=== PATIENT | female | born 1975 | race Caucasian/White ===

== ENCOUNTER 2016-10-25 22:14 | Emergency (ER) | payer MEDICAID ==
[~2016-10-25] VITALS: Ht 162.6 cm; Wt 72.7 kg
[~2016-10-25 22:14] MED LIST: ALBU8.5H3 INH; FIORICET PO; GUAI118L94 PO; IBUP800T25 PO; PRED50TA PO
[2016-10-25 22:16] VITALS: Ht 162.6 cm; Wt 72.7 kg
--- NOTE | 2016-10-25 23:49 | ERD ---
ER Documentation Chief Complaint Date/Time DATE: 10/25/16 TIME: 23:46 Chief Complaint sp fall from 3 feet ladder, back pain HPI 41 yo female comes to the ER s/p fall from falling off a ladder 3 feet at work tonight. She states that she has diffuse pain from her neck, mid back, low back pain. She state she landed on her buttocks just prior to arrival. Pain is diffuse, moderate to severe, worse with standing, better with sitting, radiating from the buttocks to the mid back. She denies saddle anesthesia, loss of bowel bladder function. ROS All systems reviewed and are negative except as per history of present illness. Medications Home Meds Active Scripts Hydrocodone/Acetaminophen ([place] 5-325 Tablet) 1 Each Tablet, 1 TAB PO Q6H Y for PAIN, #7 TAB Prov:DIANA GARCIA PA-C 10/25/16 Ibuprofen* (Motrin*) 600 Mg Tab, 600 MG PO Q6, #30 TAB Prov:DINAA GARCIA PA-C 10/25/16 Acetamin/Butalbital/Caffeine* (Fioricet*) [id number] Tab, 1 TAB PO Q6H Y for PAIN, #30 TAB Prov:SANYA SINGER PA-C 03/10/16 Ibuprofen* (Motrin*) 800 Mg Tab, 800 MG PO Q6H Y for PAIN AND OR ELEVATED TEMP, #30 TAB Prov:YVETTE SIDDIQUI DO 02/20/16 Guaifenesin-Codeine Phosphate* (Guaifenesin* with Codeine Liq) 120 Ml Liquid, 5 ML PO Q4H for COUGH, #60 ML Prov:JERMAIN INGRAM NP 08/29/15 Prednisone* (Prednisone*) 50 Mg Tablet, 50 MG PO DAILY for 5 Days, TAB Prov:JERMAIN INGRAM NP 08/29/15 Albuterol Sulfate* (Proair HFA*) 8.5 Gm Hfa.aer.ad, 2 PUFF INH Q4H Y for WHEEZING AND SOB, #1 INHALER Prov:JERMAIN INGRAM NP 08/29/15 Reported Medications [none] Unknown Strength No Conflict Check 08/29/15 Allergies Allergies: Coded Allergies: No Known Drug Allergies (Verified Allergy, Mild, 10/18/12) PMhx/Soc History of Surgery: No Anesthesia Reaction: No Hx Neurological Disorder: No Hx Respiratory Disorders: No Hx Cardiac Disorders: No Hx Psychiatric Problems: No Hx Miscellaneous Medical Probl: No Hx Alcohol Use: No Hx Substance Use: No Hx Tobacco Use: No Physical Exam Vitals Vital Signs Date Time Temp Pulse Resp B/P Pulse Ox O2 Delivery O2 Flow Rate FiO2 10/25/16 22:16 97.7 90 20 130/74 98 Physical Exam General: Well-developed, well-nourished. The patient appears in no acute distress. HEENT: Head is normocephalic, atraumatic. No scleral icterus. Neck: Supple. Nontender. Lungs: Clear to auscultation. Normal air movement. Heart: Regular rate and rhythm. S1 and S2 are normal. No murmurs, gallops, or rubs. Abdomen: Soft, nontender, nondistended. Bowel sounds are normoactive. Back: paraspinal tenderness to the low back, no crepitus. Normal gait. strength to LE 5/5 bilaterally. Extremities: No clubbing or cyanosis. Normal pulses. Moving extremities x 4. No weakness. Neurologic: Alert and oriented 3. No focal deficits. Skin: Normal turgor. No rash or lesions. Procedures/MDM ED COURSE: urine : negative Toradol 30mg IM given. MDM: 41 yo female comes to the ER s/p fall with back pain, I doubt underlying fracture due to the low impact, and patient's age. X-rays were obtained of the column as well as the pelvis, currently pending and we signed out to RONNIE Ortiz and attending physician. Departure Diagnosis: Primary Impression: Injury of back Additional Impression: Fall from ladder Condition: Good DIANA GARCIA PA-C Oct 25, 2016 23:49
[2016-10-25] MEDS ORDERED: HYDR-906 PO (23:52)
[2016-10-25] MEDS ORDERED: IBUP-1542 PO (23:52)
[2016-10-25] MEDS ORDERED: KETOROLAC 30 MG INJ IM STA (23:58)
[2016-10-26] MEDS ORDERED: HYDROCODONE/APAP (5/325) TAB PO ONE
--- NOTE | 2016-10-26 00:49 | RADRPT ---
PROCEDURE: PELVIS CLINICAL INDICATION: 41-year-old female with pelvic pain following trauma. TECHNIQUE: An AP supine view of the pelvis was obtained. The images reviewed on a PACS workstati on.. COMPARISON: None. FINDINGS: There are no fractures or dislocations. There are no arthritic, neoplastic or inflammatory changes. The osseous mineralization is normal. The sacroiliac joints are intact. IMPRESSION: Unremarkable pelvic radiograph. .James Mclean MD, MD Date Time Electronically viewed and signed by .James Mclean MD, on 10/26/2016 00:49 .M/
--- NOTE | 2016-10-26 00:50 | RADRPT ---
PROCEDURE: LUMBAR SPINE - 3 VIEWS CLINICAL INDICATION: 41-year-old female with back pain following trauma. TECHNIQUE: AP, lateral and cone-down lateral view of the lumbar spine were obtained. The images we re reviewed on a PACS workstation. COMPARISON: None. FINDINGS: The lumbar vertebral bodies and disk spaces have normal heights and anatomic alignment. No evidence of fracture or subluxation is seen. No significant spondylolisthesis is seen. The partially visualiz ed sacrum is unremarkable. The sacroiliac joints are intact. IMPRESSION: Unremarkable lumbar spine radiographs. .James Mclean MD, MD Date Time Electronically viewed and signed by .James Mclean MD, on 10/26/2016 00:50 .M/
--- NOTE | 2016-10-26 00:51 | RADRPT ---
PROCEDURE: THORACIC SPINE - 2 VIEWS CLINICAL INDICATION: 41-year-old female with back pain following trauma. TECHNIQUE: AP and lateral views of the thoracic spine were obtained. The images were reviewed on a PACS workstation. COMPARISON: None. FINDINGS: The thoracic vertebral bodies and disk spaces have normal heights and anatomic alignment. There is no evidence for an acute fracture or subluxation. The bone marrow mineralization is within normal l imits. IMPRESSION: Unremarkable thoracic spine radiographs. .James Mclean MD, Date Time Electronically viewed and signed by .James Mclean MD, on 10/26/2016 00:50 .M/
--- NOTE | 2016-10-26 00:52 | RADRPT ---
PROCEDURE: CERVICAL SPINE - 3 VIEWS CLINICAL INDICATION: 41-year-old female with neck pain following trauma. TECHNIQUE: AP, lateral and odontoid views of the cervical spine were performed. The images were re viewed on a PACS workstation. COMPARISON: None. FINDINGS: The prevertebral soft tissue is unremarkable. There is a normal cervical lordosis. The alignment castellanos s a normal appearance. No evidence of acute cervical spine fracture or subluxation is seen. The odon toid and lateral masses of C1 appear intact. IMPRESSION: Unremarkable cervical spine radiographs. .James Mclean MD, Date Time Electronically viewed and signed by .James Mclean MD, on 10/26/2016 00:51 .M/
--- NOTE | 2016-10-26 01:06 | EN ---
Date/Time of Note Date/Time of Note DATE: 10/26/16 TIME: 01:05 ER Progress Note A. Davy DÍAZ signed out this patient to me pending xray results, these were reviewed (see below), no fractures or dislocations, Patient will be discharged accdg to Davy DÍAZ's instructions, pain is controlled. pt stable PROCEDURE: CERVICAL SPINE - 3 VIEWS CLINICAL INDICATION: 41-year-old female with neck pain following trauma. TECHNIQUE: AP, lateral and odontoid views of the cervical spine were performed. The images were reviewed on a PACS workstation. COMPARISON: None. FINDINGS: The prevertebral soft tissue is unremarkable. There is a normal cervical lordosis. The alignment has a normal appearance. No evidence of acute cervical spine fracture or subluxation is seen. The odontoid and lateral masses of C1 appear intact. IMPRESSION: Unremarkable cervical spine radiographs. .James Mclean MD, MD Date Time Electronically viewed and signed by .James Mclean MD, MD on 10/26/2016 00:51 .M/ CC: DIANA GARCIA PA-C PROCEDURE: THORACIC SPINE - 2 VIEWS CLINICAL INDICATION: 41-year-old female with back pain following trauma. TECHNIQUE: AP and lateral views of the thoracic spine were obtained. The images were reviewed on a PACS workstation. COMPARISON: None. FINDINGS: The thoracic vertebral bodies and disk spaces have normal heights and anatomic alignment. There is no evidence for an acute fracture or subluxation. The bone marrow mineralization is within normal limits. IMPRESSION: Unremarkable thoracic spine radiographs. .James Mclean MD, MD Date Time Electronically viewed and signed by .James Mclean MD, MD on 10/26/2016 00:50 .M/ CC: DIANA GARCIA PA-C PROCEDURE: LUMBAR SPINE - 3 VIEWS CLINICAL INDICATION: 41-year-old female with back pain following trauma. TECHNIQUE: AP, lateral and cone-down lateral view of the lumbar spine were obtained. The images were reviewed on a PACS workstation. COMPARISON: None. FINDINGS: The lumbar vertebral bodies and disk spaces have normal heights and anatomic alignment. No evidence of fracture or subluxation is seen. No significant spondylolisthesis is seen. The partially visualized sacrum is unremarkable. The sacroiliac joints are intact. IMPRESSION: Unremarkable lumbar spine radiographs. .James Mclean MD, MD Date Time Electronically viewed and signed by .James Mclean MD, MD on 10/26/2016 00:50 .M/ CC: DIANA GARCIA PA-C PROCEDURE: PELVIS CLINICAL INDICATION: 41-year-old female with pelvic pain following trauma. TECHNIQUE: An AP supine view of the pelvis was obtained. The images reviewed on a PACS workstation.. COMPARISON: None. FINDINGS: There are no fractures or dislocations. There are no arthritic, neoplastic or inflammatory changes. The osseous mineralization is normal. The sacroiliac joints are intact. IMPRESSION: Unremarkable pelvic radiograph. .James Mclean MD, MD Date Time Electronically viewed and signed by .James Mclean MD, MD on 10/26/2016 00:49 .M/ CC: DIANA GARCIA PA-C, CARLA MAE T. NP Oct 26, 2016 01:06
[2016-10-26] MEDS ORDERED: IBUP-1542 PO (01:21)
[2016-10-26 01:27] VITALS: BP 122/78; PULSE 78; RESP 20; TEMP 98
== END 2016-10-26 01:28 | disposition home or self-care (01) ==
LOC: FTE 22:14
DX: S39.92XA Unspecified injury of lower back, initial encounter (principal); W11.XXXA Fall on and from ladder, initial encounter; Y92.9 Unspecified place or not applicable
CPT/HCPCS: 72040; 72072; 72100; 72170; J1885; Z7610; 96372

== ENCOUNTER 2018-02-28 15:59 | Emergency (ER) | END 2018-02-28 20:08 | disposition home or self-care (01) ==

== ENCOUNTER 2018-12-03 15:47 | Inpatient (IN) | payer MEDICAID ==
[~2018-12-03] VITALS: Ht 160 cm; Wt 59.1 kg
[2018-12-03 11:00] VITALS: BP 178/92; PULSE 100; RESP 18
[~2018-12-03 15:47] MED LIST changes: -ALBU8.5H3 INH; +ALBU8.5H8 INH; +HYDR-4011 PO; +IBUP-1542 PO; -IBUP800T25 PO; +IBUP800T48 PO
[2018-12-03 15:54] VITALS: Ht 160 cm; Wt 59.1 kg
[2018-12-03] MEDS ORDERED: SOD CHLORIDE 0.9% 100 ML ONE ×2 (16:14→18:47)
[2018-12-03] MEDS ORDERED: IOHEXOL 100 ML ONE ×2 (16:14→18:47)
--- NOTE | 2018-12-03 16:29 | STROKE ---
Date/Time of Note Date/Time of Note DATE: 12/03/18 TIME: 19:21 Patient Information General Arrival Date Age 43 Gender female Weight 59.09 kg POC Glucose Glucose Result Bedside Glucose - 72 Hours Test 12/03/18 16:00 Bedside Glucose 96 mg/dL (70-220) Vital Signs Vital Signs Vital Signs Date Temp Pulse Resp B/P (MAP) Pulse Ox O2 O2 Flow FiO2 Time Delivery Rate 12/03/18 98.8 103 15 124/73 100 15:54 (90) Patient History Current Medications Allergies: Coded Allergies: No Known Drug Allergies (Verified Allergy, Mild, 10/18/12) NIH Stroke Scale NIH Stroke Scale Date/Time Recorded DATE: 12/03/18 TIME: 19:21 Submitted By Phani Carlson t-PA Imaging Review Date/Time Imaging Reviewed DATE: 12/03/18 TIME: 19:21 t-PA Administration Weight 59.09 kg Recommedation submitted by Phani Carlson Recommendations Recommendation last normal 9 am. progressive symptoms of sob, speech trouble, left weakness by history. significant stressors elicited on history. takes no medicines. Exam shows distressed crying patient who is stuttering and sobbing. flaccid-shailesh left arm and leg - unsure of degree of effort. Needs MRI to put to rest the question of stroke. She is not a tPA candidate because of time. PHANI CARLSON MD Dec 03, 2018 16:29
[2018-12-03] MEDS ORDERED: ASPIRIN 81 MG TAB PO ONE (17:00)
[2018-12-03] MEDS ORDERED: LORAZEPAM 2 MG INJ ONE (17:14)
--- NOTE | 2018-12-03 17:18 | ERD ---
ER Documentation Chief Complaint Chief Complaint DYSARTHRIA AT 0900 TODAY. APHASIA AT 1400. HPI 43-year-old female who presents with possible acute neurologic deficit. History is extremely limited and difficult to obtain. It appears after conversation with the patient's daughter that at 9 AM the patient describes some intermittent chest discomfort, shortness of breath numbness and dysarthria. Around noon symptoms slightly improved but the patient still had weakness. Around 2 PM they worsened again the patient was a phasic. The patient was brought to the emergency room. EMS reports the patient has had waxing and waning and changing neurologic symptoms. Patient is extremely anxious tearful and having difficulty explaining herself. ROS All systems reviewed and are negative except as per history of present illness. Medications Home Meds Discontinued Reported Medications [none] Unknown Strength No Conflict Check 08/29/15 Discontinued Scripts Ibuprofen* (Motrin*) 800 Mg Tab, 800 MG PO Q6H PRN for PAIN AND OR ELEVATED TEMP, #30 TAB Prov:SALTY CORDON MD 02/28/18 Ibuprofen* (Motrin*) 600 Mg Tab, 600 MG PO Q6, #30 TAB Prov:JERMAIN INGRAM NP 10/26/16 Hydrocodone/Acetaminophen ([place] 5-325 Tablet) 1 Each Tablet, 1 TAB PO Q6H PRN for PAIN, #7 TAB Prov:DIANA GARCIA PA-C 10/25/16 Acetamin/Butalbital/Caffeine* (Fioricet*) [id number] Tab, 1 TAB PO Q6H PRN for PAIN, #30 TAB Prov:SANYA SINGER PA-C 03/10/16 Ibuprofen* (Motrin*) 800 Mg Tab, 800 MG PO Q6H PRN for PAIN AND OR ELEVATED TEMP, #30 TAB Prov:YVETTE SIDDIQUI DO 02/20/16 Guaifenesin-Codeine Phosphate* (Guaifenesin* with Codeine Liq) 120 Ml Liquid, 5 ML PO Q4H for COUGH, #60 ML Prov:JERMAIN INGRAM NP 08/29/15 Prednisone* (Prednisone*) 50 Mg Tablet, 50 MG PO DAILY for 5 Days, TAB Prov:JERMAIN INGRAM NP 08/29/15 Albuterol Sulfate* (Proair HFA*) 8.5 Gm Hfa.aer.ad, 2 PUFF INH Q4H PRN for WHEEZING AND SOB, #1 INHALER Prov:JERMAIN INGRAM NP 08/29/15 Allergies Allergies: Coded Allergies: No Known Drug Allergies (Verified Allergy, Mild, 12/03/18) PMhx/Soc Medical and Surgical Hx: pt denies Medical Hx History of Surgery: Yes () Anesthesia Reaction: No Hx Neurological Disorder: No Hx Respiratory Disorders: No Hx Cardiac Disorders: No Hx Psychiatric Problems: No Hx Miscellaneous Medical Probl: No Hx Alcohol Use: No Hx Substance Use: No Hx Tobacco Use: No Smoking Status: Never smoker FmHx Family History: No diabetes Physical Exam Vitals Vital Signs Date Temp Pulse Resp B/P (MAP) Pulse Ox O2 O2 Flow FiO2 Time Delivery Rate 12/03/18 98.8 103 15 124/73 100 15:54 (90) Physical Exam General: Tearful, dysarthria Head: Normocephalic, atraumatic. Eyes: Pupils equally reactive, EOM intact ENT: Moist mucous membranes Neck: Supple, no lymphadenopathy Respiratory: Lungs clear bilaterally, no distress Cardiovascular: RRR, no murmurs, rubs, or gallops Abdominal: Soft, non-tender, non-distended, no peritoneal signs : Deferred MSK: No edema, no unilateral swelling Neurologic: very limited examination but the patient seems to have dysarthria. The patient seems to have global weakness that is inconsistent but worse to the left upper and lower extremity. Skin: No rash Psych: anxious mood Result Diagram: 12/03/18 1601 12/03/18 1601 Results 24 hrs Laboratory Tests Test 12/03/18 16:00 12/03/18 16:01 Bedside Glucose 96 mg/dL White Blood Count 8.9 10^3/ul Red Blood Count 4.98 10^6/ul Hemoglobin 14.4 g/dl Hematocrit 43.7 % Mean Corpuscular Volume 87.8 fl Mean Corpuscular Hemoglobin 28.9 pg Mean Corpuscular Hemoglobin Concent 33.0 g/dl Red Cell Distribution Width 13.9 % Platelet Count 292 10^3/UL Mean Platelet Volume 10.8 fl Immature Granulocytes % 0.800 % Neutrophils % 61.2 % Lymphocytes % 27.9 % Monocytes % 6.7 % Eosinophils % 2.6 % Basophils % 0.8 % Nucleated Red Blood Cells % 0.0 /100WBC Immature Granulocytes # 0.070 10^3/ul Neutrophils # 5.5 10^3/ul Lymphocytes # 2.5 10^3/ul Monocytes # 0.6 10^3/ul Eosinophils # 0.2 10^3/ul Basophils # 0.1 10^3/ul Nucleated Red Blood Cells # 0.0 10^3/ul Prothrombin Time 13.2 Sec Prothrombin Time Ratio 1.0 INR International Normalized Ratio 0.99 Activated Partial Thromboplast Time 28.5 Sec Sodium Level 143 mmol/L Potassium Level 3.6 mmol/L Chloride Level 110 mmol/L Carbon Dioxide Level 23 mmol/L Anion Gap 10 Blood Urea Nitrogen 9 mg/dl Creatinine 0.71 mg/dl Est Glomerular Filtrat Rate mL/min > 60 mL/min Glucose Level 107 mg/dl Hemoglobin A1c 5.5 % Calcium Level 9.1 mg/dl Creatine Kinase 76 IU/L Creatine Kinase Index 0.5 Creatinine Kinase MB (Mass) 0.38 ng/ml Troponin I < 0.012 ng/ml Triglycerides Level 198 mg/dl Cholesterol Level 186 mg/dl LDL Cholesterol, Calculated 107 mg/dl HDL Cholesterol 39 mg/dl Cholesterol/HDL Ratio 4.7 RATIO Serum HCG, Qualitative NEGATIVE Ethyl Alcohol Level < 10.0 mg/dl Current Medications Medications Dose Sig/Jackson Start Time Status Last (Trade) Ordered Route PRN Stop Time Admin Dose Reason Admin Iohexol 100 ml @ ud STK-MED 12/03/18 DC ONCE .ROUTE 16:14 12/03/18 16:15 Sodium 100 ml @ ud STK-MED 12/03/18 DC Chloride ONCE .ROUTE 16:14 12/03/18 16:15 Aspirin 162 mg ONCE ONCE 12/03/18 DC (Aspirin) PO 17:00 12/03/18 17:01 Lorazepam 1 mg ONCE ONCE 12/03/18 12/03/18 (Ativan) IV 17:30 17:18 12/03/18 17:31 Lorazepam 2 mg STK-MED 12/03/18 DC (Ativan) ONCE .ROUTE 17:14 12/03/18 17:15 Procedures/MDM EKG, MONITORS, & DIAGNOSTIC IMAGING: EKG: I reviewed and interpreted a 12-lead EKG. Rhythm: Normal sinus rhythm Ectopy: None Arrhythmia: None Intervals: No abnormalities ST segments: No elevations or depressions T waves: No contiguous inversions Interpretation: No acute cardiac ischemia Chest x-ray: I reviewed and interpreted a 1 view of the chest Mediastinum: No enlargement Cardiac silhouette: No cardiomegaly Airspace: Clear lung brandt bilaterally without evidence of pneumothorax Bones: No evidence of fracture Interpretation: No acute cardiopulmonary process CT Brain: No acute process per radiologist read CTA Head and Neck: No acute process per radiologist read LAB INTERPRETATION: * Reviewed, no acute process MEDICAL DECISION MAKING: Patient presents with what appears to be an acute neurologic deficit. The patient however is a very difficult exam, waxing and waning symptoms. Last known well time she is very round 9 AM this morning. Patient's arrival is at 1547 A code stroke was initiated when further information was being gathered. In the end this seems to be possibly more consistent with conversion disorder, anxiety response versus nonspecific neurologic process. ER COURSE: Stroke assessment and timing: Last known well time: 9 AM this morning Arrival to ED: 1547 Stroke code activation: [address] scan: Directed CT [address]: See nursing documentation Initial neurology discussion: 1556 NIHSS: 17 TPA decision-making: Patient is not a TPA candidate given last known well time greater than 4-1/2 hours prior to presentation Interventional decision-making: Patient is not an interventional candidate given no large vessel occlusion Stroke neurologist on-call: Dr. Carlson Critical Care Note: Total time: 50 minutes Indication/Organ System Threat: Acute neurologic deficit and stroke code activation that requires emergent evaluation and assessment to prevent neurologic compromising collapse. I spent the above amount of critical care time with the patient, not including billable procedures. This included chart review, consultations, repeat bedside evaluations, and titration of appropriate medications to prevent cardiopulmonary or respiratory collapse. ER update: * The patient continues to be extremely anxious, anxiolysis provided. Aspirin provided. The patient's initial work-up is negative. However the patient warrants inpatient hospitalization for further evaluation, MRI imaging, neurology and potentially psychiatry evaluation. I kept the patient and/or family informed of laboratory and diagnostic imaging results throughout the emergency room course. DISPOSITION PLAN: Telemetry admission CONSULTATION: Accepting care team and consultations: I discussed the current laboratory data, diagnostic imaging and emergency care provided. Admitting team: Panel team notified via [employer] Admitting team indication: Insurance directed Departure Diagnosis: Primary Impression: Dysarthria Additional Impressions: Left-sided weakness Anxiety reaction Condition: Stable SALTY CORDON MD Dec 03, 2018 17:18
[2018-12-03] MEDS ORDERED: LORAZEPAM 2 MG INJ IV ONE (17:30)
[2018-12-03] MEDS ORDERED: ACETAMINOPHEN 325 MG TAB PO PRN (17:30)
[2018-12-03] MEDS ORDERED: ONDANSETRON 4 MG INJ IV PRN (17:30)
[2018-12-03] MEDS ORDERED: NACL 0.9% 3 ML SYG IV SCH (18:30)
--- NOTE | 2018-12-03 18:38 | HP ---
Date/Time of Note Date/Time of Note DATE: 12/03/18 TIME: 18:31 Assessment/Plan VTE Prophylaxis SCD applied (from Nsg): Yes Pharmacological prophylaxis: heparin Lines/Catheters IV Catheter Type (from Nrsg): Saline Lock Assessment/Plan Hospital Course NEURO: Alert, oriented x 3. Seems to have some mild L sided facial droop. Sens ation is decrease on L face compared to right face. Pupils reactive. Cranial nerves otherwise intact. Sensation to light touch and pain diminished in LUE, did not react to strong noxious stimulus there. Strength 4/5 in L shoulder, elbow, hand. Strength 5/5 in RUE Strenght 4/5 in LLE at hip and knee. Almost fell over when tried to stand. Right sided preference CV: Tachy, regular. JVD elevated Lungs clear Abdomen soft nt nd Ext warm without edema A/P: This is a 43-year-old female without significant past medical history who presents with numerous symptoms which started last week. Started with nausea and vomiting syndrome last week which resolved. This week has developed shortness of breath with episodic chest pains. Has also developed left-sided weakness, dysarthria and anxiety. Head CT without acute findings. Chest x-ray showing possible pulmonary edema Left-sided weakness: - Patient exam is notable for left-sided weakness from face to leg though seemed a bit limited by cooperation. Her head CT is negative for acute stroke but we will assess with an MRI - Neurology consultation Chest pain and shortness of breath: -Tachycardia and possible leg swelling will send for CT PE which will also illuminate what ever pulmonic process is apparent on her chest CT -We will also check echocardiogram Result Diagram: 12/03/18 1601 12/03/18 1601 Results 24hrs Laboratory Tests Test 12/03/18 16:00 12/03/18 16:01 12/03/18 17:35 Bedside Glucose 96 White Blood Count 8.9 Red Blood Count 4.98 Hemoglobin 14.4 Hematocrit 43.7 Mean Corpuscular Volume 87.8 Mean Corpuscular Hemoglobin 28.9 L Mean Corpuscular Hemoglobin Concent 33.0 Red Cell Distribution Width 13.9 Platelet Count 292 Mean Platelet Volume 10.8 H Immature Granulocytes % 0.800 H Neutrophils % 61.2 Lymphocytes % 27.9 Monocytes % 6.7 Eosinophils % 2.6 Basophils % 0.8 Nucleated Red Blood Cells % 0.0 Immature Granulocytes # 0.070 H Neutrophils # 5.5 Lymphocytes # 2.5 Monocytes # 0.6 Eosinophils # 0.2 Basophils # 0.1 Nucleated Red Blood Cells # 0.0 Prothrombin Time 13.2 Prothrombin Time Ratio 1.0 INR International Normalized Ratio 0.99 Activated Partial Thromboplast Time 28.5 Sodium Level 143 Potassium Level 3.6 Chloride Level 110 Carbon Dioxide Level 23 Anion Gap 10 Blood Urea Nitrogen 9 Creatinine 0.71 Est Glomerular Filtrat Rate mL/min > 60 Glucose Level 107 Hemoglobin A1c 5.5 Calcium Level 9.1 Creatine Kinase 76 Creatine Kinase Index 0.5 Creatinine Kinase MB (Mass) 0.38 Troponin I < 0.012 Triglycerides Level 198 H Cholesterol Level 186 LDL Cholesterol, Calculated 107 HDL Cholesterol 39 Cholesterol/HDL Ratio 4.7 Serum HCG, Qualitative NEGATIVE Ethyl Alcohol Level < 10.0 H Urine Color STRAW Urine Clarity CLEAR Urine pH 7.0 Urine Specific [place] 1.034 H Urine Ketones NEGATIVE Urine Nitrite NEGATIVE Urine Bilirubin NEGATIVE Urine Urobilinogen NEGATIVE Urine Leukocyte Esterase NEGATIVE Urine Microscopic RBC 0 Urine Microscopic WBC 0 Urine Hemoglobin 1+ H Urine Glucose NEGATIVE Urine Total Protein NEGATIVE Urine Opiates Screen NEGATIVE Urine Barbiturates NEGATIVE Urine Amphetamines Screen NEGATIVE Urine Benzodiazepines Screen NEGATIVE Urine Cocaine Screen NEGATIVE Urine Cannabinoids NEGATIVE HPI/ROS Admit Date/Time Admit Date/Time Hx of Present Illness This is a 43-year-old male female without past medical history who presents with numerous complaints Patient in usual state of health until last week. Last week she developed some sort of syndrome leading to nausea and vomiting for which she sought care from her doctor. Was prescribed some medication which she did never filled. It seems that the symptoms resolved. Then over the past few days she has developed shortness of breath with chest pains. Feels frequent attacks of shortness of breath and chest pain which today were very frequent. She also feels dizziness and lightheadedness. She feels numbness in her left face down to her left arm and leg as well. Also seems very weak on that side throughout. She seems to be very anxious family is very concerned about her anxiety. She also seems to have trouble articulating words with a new stutter that seems to have come on today. In the ER had a negative CT for acute stroke ROS Constitutional: no complaints, improved Eyes: no complaints ENT: no complaints Respiratory: no complaints Cardiovascular: no complaints Gastrointestinal: no complaints Genitourinary: no complaints Musculoskeletal: no complaints Skin: no complaints Neurologic: no complaints Endocrine: no complaints Lymphatic: no complaints Psychological: no complaints, nl mood/affect Immunologic: no complaints PMH/Family/Social Past Medical History Medical History: no pertinent history Medications Current Medications Ondansetron HCl (Zofran Inj) 4 mg ER BRIDGE PRN IV NAUSEA/VOMITING; Start 12/03/18 at 17:30; Stop 12/04/18 at 17:29 Acetaminophen (Tylenol Tab) 650 mg ER BRIDGE PRN PO .MILD PAIN 1-3 OR TEMP; Start 12/03/18 at 17:30; Stop 12/04/18 at 17:29 Coded Allergies: No Known Drug Allergies (Verified Allergy, Mild, 12/03/18) Past Surgical History Past Surgical Hx: no surgical history Family History Significant Family History: no pertinent family hx Social History Alcohol Use: none Smoking Status: Never smoker Drug Use: none Exam/Review of Systems Vital Signs Vitals Vital Signs Date Temp Pulse Resp B/P (MAP) Pulse Ox O2 O2 Flow FiO2 Time Delivery Rate 12/03/18 109 15 118/66 100 Room Air 17:00 (83) 12/03/18 98.8 15:54 CARLY LONG MD Dec 03, 2018 18:38
[2018-12-03] MEDS: HYDROCODONE/APAP (5/325) TAB PO PRN (23:25)
[2018-12-04] VITALS: BP_SYST 116; BP_SYST 149; BP_DIAS 56; BP_DIAS 96; PULSE 100; PULSE 99; RESP 18
[2018-12-04] MEDS ORDERED: LORAZEPAM 0.5 MG TAB PO ONE
[2018-12-04] MEDS ORDERED: LORAZEPAM 0.5 MG TAB PO PRN
[2018-12-04 04:21] VITALS: BP 101/57; PULSE 80; RESP 20
[2018-12-04 07:14] VITALS: BP 105/57; PULSE 81; RESP 19
[2018-12-04] MEDS ORDERED: ONDANSETRON 4 MG INJ IV PRN (08:30)
[2018-12-04] MEDS: ENOXAPARIN 30 MG/0.3 ML SYG SC SCH (08:40)
--- NOTE | 2018-12-04 09:33 | CONSI ---
Assessment/Plan Assessment/Plan Assessment/Plan (Recall) 43 F s/ cerebrovascular risk factors...who presents for evaluation of left sided weakness and numbness, difficulty speaking and other symptoms.. Her neurologic presentation is in large part nonphysiologic, which raises concern for a somatization disorder.. A focal [employer] process is, though, not entirely excluded.. Head CT is unremarkable. CTA head and neck is the same. LDL 107, A1C 5.4 P: Await MRI brain for further characterization asa/lipitor daily pending the above PT/OT/ST as necessary Other management and supportive care per primary Will follow clinically, to recommend additional neurologic studies as necessary Consultation Date/Type/Reason Admit Date/Time Type of Consult Neurology Reason for Consultation left sided weakness, dysarthria Requesting Provider: CARLY LONG MD Date/Time of Note DATE: 12/04/18 TIME: 09:26 Hx of Present Illness This is a 43-year-old male female without past medical history who presents with numerous complaints Patient in usual state of health until last week. Last week she developed some sort of syndrome leading to nausea and vomiting for which she sought care from her doctor. Was prescribed some medication which she did never filled. It seems that the symptoms resolved. Then over the past few days she has developed shortness of breath with chest pains. Feels frequent attacks of shortness of breath and chest pain which today were very frequent. She also feels dizziness and lightheadedness. She feels numbness in her left face down to her left arm and leg as well. Also seems very weak on that side throughout. She seems to be very anxious family is very concerned about her anxiety. She also seems to have trouble articulating words with a new stutter that seems to have come on today. In the ER had a negative CT for acute stroke per HPI Objective Exam Vitals Vital Signs Date Temp Pulse Resp B/P (MAP) Pulse Ox O2 O2 Flow FiO2 Time Delivery Rate 12/04/18 Nasal 2.0 07:41 Cannula 12/04/18 97.5 81 19 105/57 94 07:14 (73) Intake and Output 12/03/18 12/03/18 12/04/18 1515:00 23:00 07:00 IntakeIntake Total 400 ml OutputOutput Total 1 ml BalanceBalance 399 ml Exam PE: Gen Appearance: No Apparent Distress HEENT: Normocephalic Cardiovascular: Regular rate Abdomen: Soft Extremities: Dry NE: The patient was alert and oriented. Language was dysfluent.. Fund of knowledge was normal. Pupils were equal and reactive to light. There was no afferent pupillary defect. Visual brandt were normal. Funduscopic examination was limited. Extra-ocular mov ements were full. Ptosis was absent. There was no nystagmus. Facial sensation was normal. Face was symmetric with normal strength. Hearing was intact. Palate movements were normal. Neck strength was normal. There was normal tongue bulk and speed of movement. Tone was normal. Muscle bulk was normal. I did not see fasciculations. Arms and legs were effort limited on the left.. Vibration sensation was reduced on the left. Temperature and pinprick sensation was reduced on the left.. Rapid alternating movements were slow. There was no dysmetria. There was no intention tremor. Gait was deferred due to bedrest. Arm and leg reflexes were symmetric. Adler's sign was absent. Plantar responses were flexor. Results Result Diagram: 12/04/1852012/04/18520 Results 24hrs Laboratory Tests Test 12/03/18 16:00 12/03/18 16:01 12/03/18 17:35 12/04/18 05:21 Bedside Glucose 96 White Blood Count 8.9 10.0 Red Blood Count 4.98 4.48 Hemoglobin 14.4 13.2 Hematocrit 43.7 39.5 Mean Corpuscular 87.8 88.2 Volume Mean Corpuscular 28.9 L 29.5 Hemoglobin Mean Corpuscular 33.0 33.4 Hemoglobin Concent Red Cell 13.9 14.2 Distribution Width Platelet Count 292 276 Mean Platelet Volume 10.8 H 10.8 H Immature 0.800 H 0.500 H Granulocytes % Neutrophils % 61.2 61.4 Lymphocytes % 27.9 30.0 Monocytes % 6.7 5.8 Eosinophils % 2.6 1.9 Basophils % 0.8 0.4 Nucleated Red Blood 0.0 0.0 Cells % Immature 0.070 H 0.050 H Granulocytes # Neutrophils # 5.5 6.1 Lymphocytes # 2.5 3.0 H Monocytes # 0.6 0.6 Eosinophils # 0.2 0.2 Basophils # 0.1 0.0 Nucleated Red Blood 0.0 0.0 Cells # Prothrombin Time 13.2 Prothrombin Time 1.0 Ratio INR International 0.99 Normalized Ratio Activated 28.5 Partial Thromboplast Time Sodium Level 143 143 Potassium Level 3.6 3.5 Chloride Level 110 109 Carbon Dioxide Level 23 26 Anion Gap 10 8 Blood Urea Nitrogen 9 6 L Creatinine 0.71 0.72 Est Glomerular > 60 > 60 Filtrat Rate mL/min Glucose Level 107 103 Hemoglobin A1c 5.5 5.4 Calcium Level 9.1 8.8 Creatine Kinase 76 Creatine Kinase 0.5 Index Creatinine Kinase MB 0.38 (Mass) Troponin I < 0.012 Triglycerides Level 198 H Cholesterol Level 186 LDL Cholesterol, 107 Calculated HDL Cholesterol 39 Cholesterol/HDL 4.7 Ratio Serum HCG, NEGATIVE Qualitative Ethyl Alcohol Level < 10.0 H Urine Color STRAW Urine Clarity CLEAR Urine pH 7.0 Urine Specific 1.034 H [place] Urine Ketones NEGATIVE Urine Nitrite NEGATIVE Urine Bilirubin NEGATIVE Urine Urobilinogen NEGATIVE Urine Leukocyte NEGATIVE Esterase Urine Microscopic 0 RBC Urine Microscopic 0 WBC Urine Hemoglobin 1+ H Urine Glucose NEGATIVE Urine Total Protein NEGATIVE Urine Opiates Screen NEGATIVE Urine Barbiturates NEGATIVE Urine Amphetamines NEGATIVE Screen Urine NEGATIVE Benzodiazepines Screen Urine Cocaine Screen NEGATIVE Urine Cannabinoids NEGATIVE Total Bilirubin 0.6 Direct Bilirubin 0.00 Indirect Bilirubin 0.6 Aspartate Amino 23 Transf (AST/SGOT) Alanine 25 Aminotransferase (AL T/SGPT) Alkaline Phosphatase 46 Total Protein 6.7 Albumin 3.6 Globulin 3.10 Albumin/Globulin 1.16 Ratio Thyroid Stimulating 2.290 Hormone (TSH) Past Medical History Medical History: no pertinent history Home Meds Discontinued Reported Medications [none] Unknown Strength No Conflict Check 08/29/15 Discontinued Scripts Ibuprofen* (Motrin*) 800 Mg Tab, 800 MG PO Q6H PRN for PAIN AND OR ELEVATED TEMP, #30 TAB Prov:SALTY CORDON MD 02/28/18 Ibuprofen* (Motrin*) 600 Mg Tab, 600 MG PO Q6, #30 TAB Prov:JERMAIN INGRAM NP 10/26/16 Hydrocodone/Acetaminophen ([place] 5-325 Tablet) 1 Each Tablet, 1 TAB PO Q6H PRN for PAIN, #7 TAB Prov:DIANA GARCIA PA-C 10/25/16 Acetamin/Butalbital/Caffeine* (Fioricet*) [id number] Tab, 1 TAB PO Q6H PRN for PAIN, #30 TAB Prov:SANYA SINGER PA-C 03/10/16 Ibuprofen* (Motrin*) 800 Mg Tab, 800 MG PO Q6H PRN for PAIN AND OR ELEVATED TEMP, #30 TAB Prov:YVETTE SIDDIQUI DO 02/20/16 Guaifenesin-Codeine Phosphate* (Guaifenesin* with Codeine Liq) 120 Ml Liquid, 5 ML PO Q4H for COUGH, #60 ML Prov:JERMAIN INGRAM NP 08/29/15 Prednisone* (Prednisone*) 50 Mg Tablet, 50 MG PO DAILY for 5 Days, TAB Prov:JERMAIN INGRAM NP 08/29/15 Albuterol Sulfate* (Proair HFA*) 8.5 Gm Hfa.aer.ad, 2 PUFF INH Q4H PRN for WHEEZING AND SOB, #1 INHALER Prov:JERMAIN INGRAM NP 08/29/15 Medications Current Medications Acetaminophen (Tylenol Tab) 650 mg ER BRIDGE PRN PO .MILD PAIN 1-3 OR TEMP; Start 12/03/18 at 17:30; Stop 12/04/18 at 17:29 IV Flush (NS 3 ml) 3 ml PER PROTOCOL IV ; Start 12/03/18 at 18:30 Acetaminophen/ Hydrocodone Bitart ([place] (5/325)) 1 tab Q6H PRN PO .MOD PAIN 4- 6 Last administered on 12/03/18at 23:25; Admin Dose 1 TAB; Start 12/03/18 at 18:30 Enoxaparin Sodium (Lovenox) 30 mg DAILY SC Last administered on 12/04/18at 08:40; Admin Dose 30 MG; Start 12/04/18 at 09:00 Lorazepam (Ativan) 0.5 mg ONCE PRN PO AGITATION/ANXIETY; Start 12/04/18 at 00:00 Ondansetron HCl (Zofran Inj) 4 mg Q4H PRN IV NAUSEA AND/OR VOMITING Last administered on 12/04/18at 08:37; Admin Dose 4 MG; Start 12/04/18 at 08:30 Allergies: Coded Allergies: No Known Drug Allergies (Verified Allergy, Mild, 12/03/18) Past Surgical History Past Surgical Hx: no surgical history Social History Alcohol Use: none Smoking Status: Never smoker Drug Use: none KUSHAL ASH Dec 04, 2018 09:33
[2018-12-04 11:12] VITALS: BP 113/63; PULSE 78; RESP 19
--- NOTE | 2018-12-04 13:12 | RADRPT ---
Echocardiogram Report Patient Name: Annamaria ROBERTS ID: [id number] : 1975 (43y 4m)Study Date: 12/04/2018 7:28:10 AM Gender: FAccession #: [id number] Tech: BonitaDionna Childs [facility] Location: [facility] Ref.Physician: CARLY LONG Height(Cm): BSA: Weight(Kg): Quality: AdequateOrder Physician: CARLY LONG Account #: Procedures: Echocardiographic Report: Transthoracic echocardiogram with complete 2D, M-Mode, and doppler examination. Indications: Congestive Heart Failure. Measurements: 2D/M Mode Doppler Measurement Value Normal Range Measurement Value Normal Range LVIDd 2D 4.1 [ 3.8 - 5.2 ] cm AV Peak Etienne 1.1 [ 100.0 - 170.0 ] cm/sec LVIDs 2D 2.0 [ 2.2 - 3.5 ] cm AV Peak PG 5.0 [ 2.0 - 9.0 ] mmHg LVPWd 2D 0.8 [ 0.6 - 0.9 ] cm LVOT Peak Etienne 0.8 [ 70.0 - 110.0 ] cm/sec IVSd 2D 0.8 [ 0.6 - 0.9 ] cm LVOT Peak PG 2.0 [ 2.0 - 6.0 ] mmHg AoR Diam 2D 2.5 [ 2.3 - 3.1 ] cm MV E Peak Etienne 0.6 [ 60.0 - 130.0 ] cm/sec EDV 2D 72.5 [ 46.0 - 106.0 ] ml MV A Peak Etienne 0.7 [ 100.0 - 120.0 ] cm/sec ESV 2D 12.9 [ 14.0 - 42.0 ] ml MV E/A 0.8 [ 0.8 - 1.5 ] ratio EF 2D 82.2 [ 54.0 - 74.0 ] percent MV Decel Time 169 [ 104 - 258 ] msec LA Dimen 2D 2.9 [ 2.7 - 3.8 ] cm Lat E` Etienne 0.1 [ 10.0 - 15.0 ] cm/sec Lateral E/E` 4.9 [ 1.0 - 2.0 ] ratio Med E` Etienne 0.1 cm/sec MV E/A 0.8 [ 0.8 - 1.5 ] ratio TR Peak Etienne 2.6 [ 100.0 - 280.0 ] cm/sec TR Peak PG 27.0 mmHg RVSP 30.0 [ 10.0 - 36.0 ] mmHg RA Pressure 3.0 mmHg Findings: Left Ventricle: Normal left ventricular systolic function. Normal left ventricular cavity size. Normal left ventricular wall thickness. Ejection fraction is visually estimated at 65 %. Tissue Doppler/Mitral Doppler indices are consistent with impaired relaxation (Stage I diastolic dysfunction). Right Ventricle: Normal right ventricular size. Normal right ventricular systolic function. Left Atrium: The left atrium is normal in size. Right Atrium: The right atrium is normal in size. Mitral Valve: Normal appearance and function of the mitral valve with trace physiologic regurgitation. Aortic Valve: Normal appearance of the aortic valve. No significant aortic stenosis or insufficiency. Tricuspid Valve: Normal appearance of the tricuspid valve. The estimated Peak RVSP is 30 mmHg. There is mild to moderate tricuspid regurgitation. Pulmonic Valve: Normal pulmonic valve appearance. Pericardium: Normal pericardium with no significant pericardial effusion. Aorta: Normal aortic root. IVC: Normal size and normal respiratory collapse consistent with normal right atrial pressure. Conclusions: Normal left ventricular systolic function. Normal left ventricular cavity size. Normal left ventricular wall thickness. Ejection fraction is visually estimated at 65 %. Tissue Doppler/Mitral Doppler indices are consistent with impaired relaxation (Stage I diastolic dysfunction). Normal right ventricular size. Normal right ventricular systolic function. Normal appearance of the tricuspid valve. The estimated Peak RVSP is 30 mmHg. There is mild to moderate tricuspid regurgitation. No significant valvular stenosis or regurgitation seen of remaining visualized valves. Normal pericardium with no significant pericardial effusion. Electronically Signed By: Bakari Veras 2018-12-04 13:11:17 PDT
--- NOTE | 2018-12-04 14:02 | PN ---
Date/Time of Note Date/Time of Note DATE: 12/04/18 TIME: 13:57 Assessment/Plan VTE Prophylaxis Risk score (from Nsg)>0 risk: 3 SCD applied (from Ns): Yes Pharmacological prophylaxis: heparin Lines/Catheters IV Catheter Type (from Nrsg): Saline Lock Urinary Cath still in place: No Assessment/Plan Hospital Course NEURO: Alert, oriented x 3. Seems to have some mild L sided facial droop. Sensation is decrease on L face compared to right face. Pupils reactive. Cranial nerves otherwise intact. Sensation to light touch and pain diminished in LUE, did not react to strong noxious stimulus there. Strength 4/5 in L shoulder, elbow, hand. Strength 5/5 in RUE Strenght 4/5 in LLE at hip and knee. Almost fell over when tried to stand. Right sided preference CV: Tachy, regular. JVD elevated Lungs clear Abdomen soft nt nd Ext warm without edema A/P: This is a 43-year-old female without significant past medical history who presents with numerous symptoms which started last week. Started with nausea and vomiting syndrome last week which resolved. This week has developed short ness of breath with episodic chest pains. Has also developed left-sided weakness, dysarthria and anxiety. Head CT without acute findings. Chest x-ray showing possible pulmonary edema Left-sided weakness: - Patient exam is notable for left-sided weakness from face to leg though seemed a bit limited by cooperation. Her head CT is negative for acute stroke but we will assess with an MRI which remains pending - Very possible symptoms are from conversion disorder - Neurology consultation Chest pain and shortness of breath: -Tachycardia and possible leg swelling will send for CT PE which will also illuminate what ever pulmonic process is apparent on her chest CT - Echocardiogram is wnl PT/OT Result Diagram: 12/04/1852012/04/18520 Results 24hrs Laboratory Tests Test 12/03/18 16:00 12/03/18 16:01 12/03/18 17:35 12/04/18 05:21 Bedside Glucose 96 White Blood Count 8.9 10.0 Red Blood Count 4.98 4.48 Hemoglobin 14.4 13.2 Hematocrit 43.7 39.5 Mean Corpuscular 87.8 88.2 Volume Mean Corpuscular 28.9 L 29.5 Hemoglobin Mean Corpuscular 33.0 33.4 Hemoglobin Concent Red Cell 13.9 14.2 Distribution Width Platelet Count 292 276 Mean Platelet Volume 10.8 H 10.8 H Immature 0.800 H 0.500 H Granulocytes % Neutrophils % 61.2 61.4 Lymphocytes % 27.9 30.0 Monocytes % 6.7 5.8 Eosinophils % 2.6 1.9 Basophils % 0.8 0.4 Nucleated Red Blood 0.0 0.0 Cells % Immature 0.070 H 0.050 H Granulocytes # Neutrophils # 5.5 6.1 Lymphocytes # 2.5 3.0 H Monocytes # 0.6 0.6 Eosinophils # 0.2 0.2 Basophils # 0.1 0.0 Nucleated Red Blood 0.0 0.0 Cells # Prothrombin Time 13.2 Prothrombin Time 1.0 Ratio INR International 0.99 Normalized Ratio Activated 28.5 Partial Thromboplast Time Sodium Level 143 143 Potassium Level 3.6 3.5 Chloride Level 110 109 Carbon Dioxide Level 23 26 Anion Gap 10 8 Blood Urea Nitrogen 9 6 L Creatinine 0.71 0.72 Est Glomerular > 60 > 60 Filtrat Rate mL/min Glucose Level 107 103 Hemoglobin A1c 5.5 5.4 Calcium Level 9.1 8.8 Creatine Kinase 76 Creatine Kinase 0.5 Index Creatinine Kinase MB 0.38 (Mass) Troponin I < 0.012 Triglycerides Level 198 H Cholesterol Level 186 LDL Cholesterol, 107 Calculated HDL Cholesterol 39 Cholesterol/HDL 4.7 Ratio Serum HCG, NEGATIVE Qualitative Ethyl Alcohol Level < 10.0 H Urine Color STRAW Urine Clarity CLEAR Urine pH 7.0 Urine Specific 1.034 H Levasy Urine Ketones NEGATIVE Urine Nitrite NEGATIVE Urine Bilirubin NEGATIVE Urine Urobilinogen NEGATIVE Urine Leukocyte NEGATIVE Esterase Urine Microscopic 0 RBC Urine Microscopic 0 WBC Urine Hemoglobin 1+ H Urine Glucose NEGATIVE Urine Total Protein NEGATIVE Urine Opiates Screen NEGATIVE Urine Barbiturates NEGATIVE Urine Amphetamines NEGATIVE Screen Urine NEGATIVE Benzodiazepines Screen Urine Cocaine Screen NEGATIVE Urine Cannabinoids NEGATIVE Total Bilirubin 0.6 Direct Bilirubin 0.00 Indirect Bilirubin 0.6 Aspartate Amino 23 Transf (AST/SGOT) Alanine 25 Aminotransferase (AL T/SGPT) Alkaline Phosphatase 46 Total Protein 6.7 Albumin 3.6 Globulin 3.10 Albumin/Globulin 1.16 Ratio Thyroid Stimulating 2.290 Hormone (TSH) Subjective 24 Hr Interval Summary Free Text/Dictation No change to the patient symptoms Still weak on left side, dizzy, unable to ambulate well Her daughter is at bedside. I spoke to her privately. She says that the patient is under lots of stress at home with HER-2 adult sons and constant state of fighting with each other. There is drama that 1 of them will need to be forced out of the home. Apparently the patient has had problems with anxiety for which she is gone to the hospital before Exam/Review of Systems Exam Vitals Vital Signs Date Temp Pulse Resp B/P (MAP) Pulse Ox O2 O2 Flow FiO2 Time Delivery Rate 12/04/18 98.1 78 19 113/63 94 11:12 (80) 12/04/18 Nasal 2.0 07:41 Cannula Intake and Output 12/03/18 12/03/18 12/04/18 1515:00 23:00 07:00 IntakeIntake Total 400 ml OutputOutput Total 1 ml BalanceBalance 399 ml Results Results 24hrs Laboratory Tests Test 12/03/18 16:00 12/03/18 16:01 12/03/18 17:35 12/04/18 05:21 Bedside Glucose 96 White Blood Count 8.9 10.0 Red Blood Count 4.98 4.48 Hemoglobin 14.4 13.2 Hematocrit 43.7 39.5 Mean Corpuscular 87.8 88.2 Volume Mean Corpuscular 28.9 L 29.5 Hemoglobin Mean Corpuscular 33.0 33.4 Hemoglobin Concent Red Cell 13.9 14.2 Distribution Width Platelet Count 292 276 Mean Platelet Volume 10.8 H 10.8 H Immature 0.800 H 0.500 H Granulocytes % Neutrophils % 61.2 61.4 Lymphocytes % 27.9 30.0 Monocytes % 6.7 5.8 Eosinophils % 2.6 1.9 Basophils % 0.8 0.4 Nucleated Red Blood 0.0 0.0 Cells % Immature 0.070 H 0.050 H Granulocytes # Neutrophils # 5.5 6.1 Lymphocytes # 2.5 3.0 H Monocytes # 0.6 0.6 Eosinophils # 0.2 0.2 Basophils # 0.1 0.0 Nucleated Red Blood 0.0 0.0 Cells # Prothrombin Time 13.2 Prothrombin Time 1.0 Ratio INR International 0.99 Normalized Ratio Activated 28.5 Partial Thromboplast Time Sodium Level 143 143 Potassium Level 3.6 3.5 Chloride Level 110 109 Carbon Dioxide Level 23 26 Anion Gap 10 8 Blood Urea Nitrogen 9 6 L Creatinine 0.71 0.72 Est Glomerular > 60 > 60 Filtrat Rate mL/min Glucose Level 107 103 Hemoglobin A1c 5.5 5.4 Calcium Level 9.1 8.8 Creatine Kinase 76 Creatine Kinase 0.5 Index Creatinine Kinase MB 0.38 (Mass) Troponin I < 0.012 Triglycerides Level 198 H Cholesterol Level 186 LDL Cholesterol, 107 Calculated HDL Cholesterol 39 Cholesterol/HDL 4.7 Ratio Serum HCG, NEGATIVE Qualitative Ethyl Alcohol Level < 10.0 H Urine Color STRAW Urine Clarity CLEAR Urine pH 7.0 Urine Specific 1.034 H Levasy Urine Ketones NEGATIVE Urine Nitrite NEGATIVE Urine Bilirubin NEGATIVE Urine Urobilinogen NEGATIVE Urine Leukocyte NEGATIVE Esterase Urine Microscopic 0 RBC Urine Microscopic 0 WBC Urine Hemoglobin 1+ H Urine Glucose NEGATIVE Urine Total Protein NEGATIVE Urine Opiates Screen NEGATIVE Urine Barbiturates NEGATIVE Urine Amphetamines NEGATIVE Screen Urine NEGATIVE Benzodiazepines Screen Urine Cocaine Screen NEGATIVE Urine Cannabinoids NEGATIVE Total Bilirubin 0.6 Direct Bilirubin 0.00 Indirect Bilirubin 0.6 Aspartate Amino 23 Transf (AST/SGOT) Alanine 25 Aminotransferase (AL T/SGPT) Alkaline Phosphatase 46 Total Protein 6.7 Albumin 3.6 Globulin 3.10 Albumin/Globulin 1.16 Ratio Thyroid Stimulating 2.290 Hormone (TSH) Medications Medication Current Medications Acetaminophen (Tylenol Tab) 650 mg ER BRIDGE PRN PO .MILD PAIN 1-3 OR TEMP; Start 12/03/18 at 17:30; Stop 12/04/18 at 17:29 IV Flush (NS 3 ml) 3 ml PER PROTOCOL IV ; Start 12/03/18 at 18:30 Acetaminophen/ Hydrocodone Bitart ([place] (5/325)) 1 tab Q6H PRN PO .MOD PAIN 4- 6 Last administered on 12/03/18at 23:25; Admin Dose 1 TAB; Start 12/03/18 at 1 8:30 Enoxaparin Sodium (Lovenox) 30 mg DAILY SC Last administered on 12/04/18at 08:40; Admin Dose 30 MG; Start 12/04/18 at 09:00 Lorazepam (Ativan) 0.5 mg ONCE PRN PO AGITATION/ANXIETY; Start 12/04/18 at 00:00 Ondansetron HCl (Zofran Inj) 4 mg Q4H PRN IV NAUSEA AND/OR VOMITING Last administered on 12/04/18at 08:37; Admin Dose 4 MG; Start 12/04/18 at 08:30 Atorvastatin Calcium (Lipitor) 40 mg HS PO ; Start 12/04/18 at 21:00 CARLY LONG MD Dec 04, 2018 14:02
[2018-12-04] MEDS ORDERED: ACETAMINOPHEN 500 MG TAB PO STA (14:58)
[2018-12-04 16:00] VITALS: BP 116/59; PULSE 90; RESP 19
[2018-12-04] MEDS: HYDROCODONE/APAP (5/325) TAB PO PRN (17:58)
[2018-12-04] MEDS ORDERED: KETOROLAC 30 MG INJ IV STA (18:56)
[2018-12-04] MEDS ORDERED: HYDROmorphONE 0.5 MG/0.5 ML SYG IV STA (19:31)
[2018-12-04 20:26] VITALS: BP 107/68; PULSE 80; RESP 20
[2018-12-04] MEDS ORDERED: ATORVASTATIN 40 MG TAB PO SCH (21:00)
[2018-12-05] VITALS: BP 108/55; PULSE 79; RESP 19
[2018-12-05 04:00] VITALS: BP 101/51; PULSE 70; RESP 19
[2018-12-05 07:41] VITALS: BP 100/62; PULSE 80; RESP 20
--- NOTE | 2018-12-05 09:12 | CONS ---
Assessment/Plan Assessment/Plan Assessment/Plan (Recall) 43 F s/ cerebrovascular risk factors...who presents for evaluation of left sided weakness and numbness, difficulty speaking and other symptoms.. Her neurologic presentation is in large part nonphysiologic, which raises concern for a somatization disorder.. MRI brain w/ and w/o contrast is reassuringly negative CTA head and neck is the same. LDL 107, A1C 5.4 P: PT/OT/ST as necessary Other management and supportive care per primary Will follow clinically Consultation Date/Type/Reason Admit Date/Time Dec 03, 2018 at 17:27 Type of Consult Neurology Reason for Consultation left sided weakness, dysarthria Requesting Provider: CARLY LONG MD Date/Time of Note DATE: 12/05/18 TIME: 09:11 24 HR Interval Summary Free Text/Dictation s/p MRI brain Exam/Review of Systems Exam Vitals Vital Signs Date Temp Pulse Resp B/P (MAP) Pulse Ox O2 O2 Flow FiO2 Time Delivery Rate 12/05/18 98.1 80 20 100/62 94 Room Air 07:41 (75) 12/04/18 2.0 07:41 Intake and Output 12/04/18 12/04/18 12/05/18 1515:00 23:00 07:00 IntakeIntake Total 500 ml 300 ml BalanceBalance 500 ml 300 ml Results Result Diagram: 12/04/18 0521 12/04/18 0521 Medications Medication Current Medications IV Flush (NS 3 ml) 3 ml PER PROTOCOL IV ; Start 12/03/18 at 18:30 Acetaminophen/ Hydrocodone Bitart ([place] (5/325)) 1 tab Q6H PRN PO .MOD PAIN 4- 6 Last administered on 12/04/18at 17:58; Admin Dose 1 TAB; Start 12/03/18 at 18:30 Enoxaparin Sodium (Lovenox) 30 mg DAILY SC Last administered on 12/04/18at 08:40; Admin Dose 30 MG; Start 12/04/18 at 09:00 Ondansetron HCl (Zofran Inj) 4 mg Q4H PRN IV NAUSEA AND/OR VOMITING Last administered on 12/04/18at 08:37; Admin Dose 4 MG; Start 12/04/18 at 08:30 Atorvastatin Calcium (Lipitor) 40 mg HS PO Last administered on 12/04/18at 22:31; Admin Dose 40 MG; Start 12/04/18 at 21:00 KUSHAL ASH Dec 05, 2018 09:12
[2018-12-05] MEDS: ENOXAPARIN 30 MG/0.3 ML SYG SC SCH (10:03)
--- NOTE | 2018-12-05 11:13 | PDOCDIS ---
Discharge Instructions DIAGNOSIS Discharge Diagnosis Conversion disorder Pulmonary AVM CONDITION [id number] Patient Condition: [id number] Stable FOLLOW UP/APPOINTMENTS Follow-up Plan Make an appointment to see a psychologist to manage your stress and anxiety. One option you can call who speaks Yakut is named Austin Norton and office number is Also please make an appointment with lung Dr Ben Lin to discuss the arteriovenous malformation in your lung. His office number is [phone] CARLY LONG MD Dec 05, 2018 11:13
--- NOTE | 2018-12-05 11:19 | DS ---
Date/Time of Note Date/Time of Note DATE: 12/05/18 TIME: 11:17 Discharge Summary Admission/Discharge Info Admit Date/Time Dec 03, 2018 at 17:27 Discharge Date/Time Discharge Diagnosis Conversion disorder Pulmonary AVM Patient Condition: Stable Hx of Present Illness This is a 43-year-old male female without past medical history who presents with numerous complaints Patient in usual state of health until last week. Last week she developed some sort of syndrome leading to nausea and vomiting for which she sought care from her doctor. Was prescribed some medication which she did never filled. It seems that the symptoms resolved. Then over the past few days she has developed shortness of breath with chest pains. Feels frequent attacks of shortness of breath and chest pain which today were very frequent. She also feels dizziness and lightheadedness. She feels numbness in her left face down to her left arm and leg as well. Also seems very weak on that side throughout. She seems to be very anxious family is very concerned about her anxiety. She also seems to have trouble articulating words with a new stutter that seems to have come on today. In the ER had a negative CT for acute stroke Hospital Course The patient presented with numerous symptoms including left-sided weakness dizziness chest pain shortness of breath. Initial head CT was negative. She then underwent brain MRI which was also normal. She was evaluated by neurology with no focal deficits found. She underwent CT pulmonary angiography which was negative for pulmonary embolism and did show incidental pulmonary AVM. Was ruled out for acute MA with serial troponins and EKG as well as a normal echocardiogram. She will follow-up with pulmonary as an outpatient for this. Her symptoms are likely consistent with conversion disorder. The patient endorses lots of stress related to family dynamics. She is having a difficult time at home with her children. She also has an estranged child in [place] who she has not seen in 20 years and she became very sad talking about this. She denies overt depression but is clearly very stressed and I believe her physical symptoms are related to prior psychological state. I suggested that she follow- up with a psychologist as an outpatient. Notably she denied any thoughts of self-harm. Home Meds Discontinued Reported Medications [none] Unknown Strength No Conflict Check 08/29/15 Discontinued Scripts Ibuprofen* (Motrin*) 800 Mg Tab, 800 MG PO Q6H PRN for PAIN AND OR ELEVATED TEMP, #30 TAB Prov:BORM, SALTY A., MD 02/28/18 Ibuprofen* (Motrin*) 600 Mg Tab, 600 MG PO Q6, #30 TAB Prov:JERMAIN INGRAM NP 10/26/16 Hydrocodone/Acetaminophen ([place] 5-325 Tablet) 1 Each Tablet, 1 TAB PO Q6H PRN for PAIN, #7 TAB Prov:DIANA GARCIA PA-C 10/25/16 Acetamin/Butalbital/Caffeine* (Fioricet*) [id number] Tab, 1 TAB PO Q6H PRN for PAIN, #30 TAB Prov:SANYA SINGER PA-C 03/10/16 Ibuprofen* (Motrin*) 800 Mg Tab, 800 MG PO Q6H PRN for PAIN AND OR ELEVATED TEMP, #30 TAB Prov:YVETTE SIDDIQUI DO 02/20/16 Guaifenesin-Codeine Phosphate* (Guaifenesin* with Codeine Liq) 120 Ml Liquid, 5 ML PO Q4H for COUGH, #60 ML Prov:JERMAIN INGRAM NP 08/29/15 Prednisone* (Prednisone*) 50 Mg Tablet, 50 MG PO DAILY for 5 Days, TAB Prov:JERMAIN INGRAM NP 08/29/15 Albuterol Sulfate* (Proair HFA*) 8.5 Gm Hfa.aer.ad, 2 PUFF INH Q4H PRN for WHEEZING AND SOB, #1 INHALER Prov:JERMAIN INGRAM NP 08/29/15 Follow-up Plan Make an appointment to see a psychologist to manage your stress and anxiety. 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 His office number is [phone] Primary Care Provider Care Physician CARLY Brown MD Dec 05, 2018 11:19
[2018-12-05 11:21] VITALS: BP 102/57; PULSE 78; RESP 18
--- NOTE | 2018-12-09 09:18 | RADRPT ---
Vent Rate: 88 bpm RR Interval: 684 msec WA Interval: 154 msec QRS Duration: 99 msec QT Interval: 366 msec QTC Interval: 443 msec P-R-T Ethel: 47 - -7 - 1 degrees Sinus rhythm...normal P axis, V-rate 50- 99 Low voltage, precordial leads...precordial leads <1.0mV Electronically Signed By: Meng Robertson
== END 2018-12-05 15:50 | disposition home or self-care (01) | DRG 880 ==
LOC: E/R 15:47 → 6WM 17:27 → SUATTDRO 17:32 → 6WM 12-04 13:40
PROVIDERS: ADMIT Internal Medicine; ATTEND Internal Medicine
DX: F44.7 Conversion disorder with mixed symptom presentation (principal); F41.9 Anxiety disorder, unspecified; R07.9 Chest pain, unspecified; R53.1 Weakness; R47.1 Dysarthria and anarthria
CPT/HCPCS: 70450; 70496; 70498; 70551; 71045; 71275; 80048; 80053; 80061; 80307; 81001; 82550; 82553; 82962; 83036; 84443; 84484; 84703; 85025; 85610; 85730; 92523; 92526; 92610; 93005; 93306; 96374; 97110; 97116; 97162; 97167; J1650; J1885; J2060; J2405; Q9967

== ENCOUNTER 2018-12-06 16:50 | Emergency (ER) | payer MEDICAID ==
[~2018-12-06] VITALS: Ht 154.9 cm; Wt 77.3 kg
[2018-12-06 17:36] VITALS: Ht 154.9 cm; Wt 77.3 kg
[2018-12-06] MEDS ORDERED: LORAZEPAM 2 MG INJ IV ONE (20:00)
--- NOTE | 2018-12-06 20:07 | ERD ---
ER Documentation Chief Complaint Chief Complaint pt c/o weakness, left sided numbness with n/v x 1 day HPI This is a 43-year-old female with a past medical history of bronchitis, headaches, significant anxiety, a recent admission to the hospital 3 days ago for multiple complaints including chest pain and left-sided weakness, fully worked up with a CTA of the chest, CT and CTA of the brain in addition to an MRI of the brain which was all fully negative. The patient endorses significant stressors and anxiety in her life. There were concerns of conversion disorder at time of discharge yesterday. The patient initially reported to me that she was unable to move her left side fully, but she was then moving it without any significant difficulty. The patient denies feeling sick recently. The patient denies fever or chills. The patient has had no headache or vision changes. The patient does not endorse neck or back pain. The patient denies lightheadedness or dizziness. The patient has had no chest pain or trouble breathing today. The patient denies nausea or vomiting. The patient denies abdominal pain. The patient denies changes to bowel movements or urination. ROS All systems reviewed and are negative except as per history of present illness. Medications Home Meds Discontinued Reported Medications [none] Unknown Strength No Conflict Check 08/29/15 Discontinued Scripts Ibuprofen* (Motrin*) 800 Mg Tab, 800 MG PO Q6H PRN for PAIN AND OR ELEVATED TEMP, #30 TAB Prov:SALTY RIOS MD 02/28/18 Ibuprofen* (Motrin*) 600 Mg Tab, 600 MG PO Q6, #30 TAB Prov:JERMAIN INGRAM NP 10/26/16 Hydrocodone/Acetaminophen ([place] 5-325 Tablet) 1 Each Tablet, 1 TAB PO Q6H PRN for PAIN, #7 TAB Prov:DIANA GARCIAC 10/25/16 Acetamin/Butalbital/Caffeine* (Fioricet*) [id number] Tab, 1 TAB PO Q6H PRN for PAIN, #30 TAB Prov:SANYA SINGER PA-C 03/10/16 Ibuprofen* (Motrin*) 800 Mg Tab, 800 MG PO Q6H PRN for PAIN AND OR ELEVATED TEMP, #30 TAB Prov:YVETTE SIDDIQUI DO 02/20/16 Guaifenesin-Codeine Phosphate* (Guaifenesin* with Codeine Liq) 120 Ml Liquid, 5 ML PO Q4H for COUGH, #60 ML Prov:JERMAIN INGRAM NP 08/29/15 Prednisone* (Prednisone*) 50 Mg Tablet, 50 MG PO DAILY for 5 Days, TAB Prov:JERMAIN INGRAM NP 08/29/15 Albuterol Sulfate* (Proair HFA*) 8.5 Gm Hfa.aer.ad, 2 PUFF INH Q4H PRN for WHEEZING AND SOB, #1 INHALER Prov:JERMAIN INGRAM NP 08/29/15 Allergies Allergies: Coded Allergies: No Known Drug Allergies (Verified Allergy, Mild, 12/06/18) PMhx/Soc History of Surgery: Yes () Anesthesia Reaction: No Hx Neurological Disorder: No Hx Respiratory Disorders: No Hx Cardiac Disorders: No Hx Psychiatric Problems: No Hx Miscellaneous Medical Probl: No Hx Alcohol Use: No Hx Substance Use: No Hx Tobacco Use: No FmHx Family History: No diabetes Physical Exam Vitals Vital Signs Date Temp Pulse Resp B/P (MAP) Pulse Ox O2 O2 Flow FiO2 Time Delivery Rate 12/06/18 98.0 89 18 117/76 97 Room Air 18:47 (90) 12/06/18 98.9 97 16 120/64 99 17:36 (82) Physical Exam Const: No apparent distress, well-developed, well-nourished Head: Normocephalic, Atraumatic Eyes: Normal Conjunctiva. Extraocular movements intact. Pupils equal, round and reactive to light ENT: Normal External Ears, Nose and Mouth. Neck: Full range of motion. No meningismus. Resp: Clear to auscultation bilaterally, No wheezes, rales or rhonchi Cardio: Regular rate and rhythm. No murmurs, rubs or gallops Abd: Soft, non tender, non distended. Normal bowel sounds Skin: No petechiae or rashes Back: No midline tenderness. No CVA tenderness Ext: No cyanosis, or edema Neur: Awake and alert, oriented 4. Cranial nerves intact. No facial droop. Initially demonstrated left-sided weakness, but was then found to be able to move her left side without significant difficulty. Psych: Anxious, tearful Procedures/MDM MDM The patient's presentation warrants further investigation. Previous medical records, if available, were reviewed. LABS The patient's laboratory testing was reviewed from her recent admission 3 days ago. No emergent treatment was required unless described below. CBC: No E/o systemic infection or severe anemia or thrombocytopenia Chemistry: No E/o severe acidosis or alkalosis or renal failure or liver disease or diabetic ketoacidosis PT/INR: No E/o significant coagulopathy Lipid panel: Hypertriglyceridemia Troponin: No E/o acute ischemia TSH: Within normal limits Urine: No E/o acute infection or hematuria Tox: No E/o alcohol abuse. No E/o illicit drug use. IMAGING Imaging and Radiology interpretation reviewed from recent admission. CXR FINDINGS: There is mild cardiomegaly. There is mild pulmonary vascular congestion. There are bilateral perihilar and lower lobe increased interstitial changes. There is no pleural effusion.. There is no pneumothorax. IMPRESSION: Mild cardiomegaly with pulmonary vascular congestion. Electronically viewed and signed by .Skip Blakely MD, MD on 12/03/2018 16:22 CT Head FINDINGS: Ventricular system and brain parenchyma appear unremarkable. Periventricular low density area suggestive of mild deep white matter ischemic changes. No acute intracranial bleed, midline shift, acute extra-axial col lection noted. Brain stem, posterior fossa appears unremarkable. Single calcification noted in the left temporal lobe unchanged from prior study. Globe, retrobulbar area appears unremarkable. Partial opacification right ethmoid air cells noted. Bony calvarium and overlying soft tissues appear unremarkable. Mild mucoperiosteal thickening noted in the left frontal sinus. Findings are unchanged from prior study. IMPRESSION: NO ACUTE INTRACRANIAL BLEED NOTED. Findings reported to Dr. Rios at 04:06 p.m. IF FURTHER WORKUP IS DESIRED, FOLLOW-UP MRI MAY BE HELPFUL. Electronically viewed and signed by Physician Holly on 12/03/2018 16:09 CTA head FINDINGS: CT ANGIOGRAM NECK: The origins of the great vessels arising off of the aortic arch appear patent. The bilateral common carotid arteries appear patent. The bilateral carotid bulbs - bifurcations and internal carotid arteries appear patent, without stenosis by NASCET criteria identified. Noted is medial - retropharyngeal course of the proximal left internal carotid artery. The bilateral vertebral arteries appear patent. No dissection is identified. The thyroid gland is heterogeneous with nodule seen at the isthmus measuring up to approximately 1.[address] ANGIOGRAM BRAIN: The bilateral internal carotid arteries appear patent. The bilateral internal carotid arteries are patent. The bilateral middle and anterior cerebral arteries appear patent. The bilateral posterior cerebral arteries appear patent with origin on the left noted. The basilar artery and bilateral vertebral arteries appear small anatomic basis, and patent. A small right posterior communicating artery infundibulum is seen. No aneurysm or arteriovenous malformation is identified. IMPRESSION: 1. No cervical or major vessel intracranial arterial occlusion/stenosis identified. 2. Thyroid ultrasound. Follow-up ultrasound advised. Critical results called to Dr. Rios at 04:35 p.m., 12/03/2018. Electronically viewed and signed by .Fransico Estevez MD, MD on 12/03/2018 16:36 MRI Brain FINDINGS: The ventricles are normal size, shape and position. There is no evidence for mass effect or midline shift. There are no intracranial areas of abnormal signal intensity. There is no significant susceptibility artifact to suggest blood products. There is no evidence for restricted diffusion to suggest an acute vascular event. There is moderate mucosal thickening within the posterior right ethmoid air cells with milder mucosal thickening within the bilateral anterior ethmoid air cells. No air-fluid levels are noted. IMPRESSION: 1. The intracranial contents are unremarkable on this noncontrast MRI of the brain. 2. No MR evidence for an acute infarct. 3. Moderate right posterior ethmoid and mild bilateral anterior ethmoid mucosal thickening. Electronically viewed and signed by James Mclean MD, MD on 12/05/2018 03:15 TREATMENT/DISPOSITION The patient was treated with the patient presents with recurrent waxing and waning left-sided weakness. The patient is emotional in the room. The patient initially reported complete inability to move the left side, but she did move it on my exam. The patient was admitted to the hospital last week with similar symptoms and had a complete work-up including an MRI of the brain that was unremarkable. I do not suspect cerebral ischemia or intracranial hemorrhage at this time. At time of discharge, there was consideration for a psychosomatic et iology of symptoms. Given the patient's overall presentation, I do have this suspicion as well. The patient was given a dose of Ativan in the emergency department. I do not feel that repeat diagnostic testing is warranted at this time. The patient may follow-up in an outpatient setting. DISCHARGE Upon reevaluation of the patient, symptoms have improved. No emergent diagnoses were identified. At this time, I feel that the patient stable for discharge. The patient was instructed to follow-up with a primary care physician in 1-3 days. The patient will be given strict precautions with which to return to the emergency department. Prescriptions: None Disclaimer: Inadvertent spelling and grammatical errors are likely due to EHR/dictation software use and do not reflect on the overall quality of patient care. Note that the electronic time recorded on this note does not necessarily reflect the actual time of the patient encounter. Departure Diagnosis: Primary Impression: Anxiety reaction Additional Impression: Left-sided weakness Condition: Stable Patient Instructions: Anxiety Reaction, Weakness, Unk Cause Additional Instructions: Thank you for for coming to [facility] for your care today. Please ask your nurse or provider if you have questions about your care today and do not leave until all your questions have been answered. Please use any medications given as directed and follow-up with your doctor (or the doctor you were referred to) in the next 1-3 days. If you do not have a primary care doctor you may follow up at the [facility] or [facility] (listed below). You may also use motrin and tylenol as needed for fever and/or pain unless instructed otherwise by your provider or nurse. Indications for more urgent follow-up have been discussed, but you may return to the Emergency Department at ANY time for any worrisome or worsening symptoms. If you have abdominal pain, please know that no test or exam you received is perfect and you should follow up within 8 hours for continued pain. If you had any imaging studies today, such as an X-Ray or CT Scan, these studies will be reviewed later by a radiologist. You will be called if there are important findings that were not identified today, so make sure the contact information you provided at registration is correct. If you received any narcotic pain control medicine today, such as Vicodin, Morphine or Dilaudid, your coordination and judgment may be affected for a number of hours. Please do not drive or operate heavy machinery, and you may want someone to assist you at home. If you were given a prescription for narcotic medication, be aware that it is very addictive- use sparingly and only if necessary. PLEASE SEEK FURTHER EVALUATION AND MANAGEMENT AT YOUR DOCTORS OFFICE WITHIN THE NEXT 1-3 DAYS. IT IS YOUR RESPONSIBILITY TO MAKE AN APPOINTMENT FOR FOLOW-UP CARE. IF YOU HAVE A PRIMARY DOCTOR, PLEASE CALL THEIR OFFICE TO SCHEDULE AN APPOINTMENT FOR FOLLOW UP. IF YOU DO NOT HAVE A PRIMARY DOCTOR YOU CAN CALL OUR PHYSICIAN REFERRAL HOTLINE AT IF YOU CAN NOT AFFORD TO SEE A PHYSICIAN YOU CAN CHOSE FROM THE FOLLOWING [facility] CL[facility]: [facility] [address] [facility] [address] [facility]. [facility] [address] [facility] [address] [facility] [address] [facility]. [facility]. [address] CHANNING MCGHEE MD Dec 06, 2018 20:01
[2018-12-06 20:34] VITALS: BP 117/79; PULSE 73; RESP 17
== END 2018-12-06 20:44 | disposition home or self-care (01) ==
LOC: E/R 16:50
DX: F41.9 Anxiety disorder, unspecified (principal); R40.2142 Coma scale, eyes open, spontaneous, at arrival to emergency department; R40.2362 Coma scale, best motor response, obeys commands, at arrival to emergency department; R40.2252 Coma scale, best verbal response, oriented, at arrival to emergency department
CPT/HCPCS: 96374; J2060; Z7502

== ENCOUNTER 2018-12-30 23:38 | Emergency (ER) | payer MEDICAID ==
[~2018-12-30] VITALS: Ht 154.9 cm; Wt 75.5 kg
[~2018-12-30 23:38] MED LIST changes: -ALBU8.5H8 INH; +DIAZ5TAB4 PO; -FIORICET PO; -GUAI118L94 PO; -HYDR-4011 PO; -IBUP-1542 PO; -IBUP800T48 PO; +LORA1TAB PO; -PRED50TA PO
[2018-12-30 23:48] VITALS: Ht 154.9 cm; Wt 75.5 kg
[2018-12-31] MEDS ORDERED: DIAZEPAM 10 MG/2 ML SYG IV ONE (04:30)
[2018-12-31 06:05] VITALS: BP 122/81; PULSE 91; RESP 18
== END 2018-12-31 06:06 | disposition home or self-care (01) ==
LOC: E/R 23:38
DX: F41.9 Anxiety disorder, unspecified (principal)
CPT/HCPCS: 36415; 71045; 80053; 81001; 83880; 84484; 85025; 93005; 96374; J3360; Z7502; 81003